=== PATIENT | female | born 1980 | race Hispanic/Latino ===

== ENCOUNTER 2018-08-29 22:37 | Emergency (ER) | payer OTHER ==
[2018-08-29 23:50] LABS: #Monocytes 0.6 thou/uL (0.11-0.59); #Neutrophils 4.3 thou/uL (1.40-6.50); %Basophils 0.7 % (0.0-1.0); %Eosinophils 0.6 % (0.0-10.0); %Lymphocytes 28.3 % (21.0-51.0); %Neutrophils 62.4 % (42.0-75.0); Hemoglobin 12.6 g/dL (12.0-16.0); Mean Corpuscular HGB CONC 34.2 g/dL (32.0-36.0); Mean Corpuscular Hemoglobin 28.1 pg (27.0-31.0); Mean Corpuscular Volume 82.1 fL (78.0-98.0); Mean Platelet Volume 7.3 fL (7.4-10.4); Platelet Count 262 thou/uL (130-400); RBC Distribution Width 17.3 % (11.5-14.5); Red Blood Cell (RBC) Count 4.47 mill/uL (4.20-5.40); White Blood Cell (WBC) Count 6.9 thou/uL (4.8-10.8)
[2018-08-30 00:01] LABS: ALT (SGPT) 24 U/L (8-55); AST (SGOT) 14 U/L (5-34); Albumin 3.3 g/dL (3.5-5.0); Alkaline Phosphatase 52 U/L (40-150); Anion Gap 12 mmol/L (10-20); BUN (Urea Nitrogen) 12 mg/dL (7.0-18.7); Bilirubin, Total 0.2 mg/dL (0.2-1.2); Calc. Creatinine Clearance 0 mL/min (70-130); Calcium 9.5 mg/dL (7.8-10.44); Carbon Dioxide 21 mmol/L (22-29); Chloride 108 mmol/L (98-107); Estimated GFR-MDRD Greater than 90; Globulin 3.2 g/dL (2.4-3.5); Glucose 94 mg/dL (70-105); Protein, Total 6.5 g/dL (6.0-8.3); Sodium 137 mmol/L (136-145)
== END 2018-08-30 00:13 | disposition home or self-care (01) ==
LOC: SCSER 22:37
DX: O99.89 Other specified diseases and conditions complicating pregnancy, childbirth and the puerperium (principal); Z04.1 Encounter for examination and observation following transport accident; O16.2 Unspecified maternal hypertension, second trimester; Z3A.20 20 weeks gestation of pregnancy; Z79.899 Other long term (current) drug therapy; Z79.82 Long term (current) use of aspirin; V89.2XXA Person injured in unspecified motor-vehicle accident, traffic, initial encounter
CPT/HCPCS: 80053; 85025; 99283

== ENCOUNTER 2018-09-12 17:39 | Day surgery (SDC) | payer OTHER ==
[2018-09-12] MEDS ORDERED: Labetalol HCl 100 MG/20 ML VIAL SLOW IVP PRN ×3 (17:55→18:45)
[2018-09-12 17:56] VITALS: BMI 39.4
[2018-09-12] MEDS ORDERED: Labetalol HCl 100 MG/20 ML VIAL SLOW IVP SCH (18:00)
[2018-09-12] MEDS ORDERED: Magnesium Sulfate 20 gm/500 ml 20 GM/500 ML BAG ONE (18:02)
[2018-09-12] MEDS ORDERED: Calcium Gluc 4.6 MEQ/10 ML (100 MG/ML) SLOW IVP PRN (18:16)
--- NOTE | 2018-09-12 18:21 | PDOC.LDHP ---
Labor and Delivery H&P Chief complaint: other (Severe HTN at 22 weeks 3 days) HPI: Patient sent to L&D from [facility] visit today, per Dr Reece first took the call Location: L&D Triage B Time: 1814 First evaluated at bedside at 1800 Patient is a 37 yo last delivery by CS with a HX of CHTN on labetolol 200mg po BID, was sent for emergent HTN from [facility] today. Saw Dr Burt Siu ( [facility]) who sent her here. No NG, no VB. She states her BP this am at home was 123/ 75. Her BP on arrival was 212/90s, 199/98 Allergies: none Meds: Labetolol 200mg po BID Current gestational age (weeks): 22 (3 days) Due date: 01/13/19 Dating criteria: last menstrual period Grav: 3 Para: 2 OB History Details: Last delivery was CS 2006 Current complications: hypertension Abnormal US findings: No (states sono EFW at [facility] was "1 #3 oz") Current medications: pre- vitamins, other (Labetolol 200mg po BID) Previous surgical history: low tranverse CS Allergies/Adverse Reactions: Allergies Allergy/AdvReac Type Severity Reaction Status Date / Time No Known Allergies Allergy Verified 09/12/18 18:02 Social history: none - Physical Exam Abnormal vital signs: 205/111 after 20mg labetolol SIVP x1, now getting 40mg labetolol SIVP General: NAD Heart: RRR Lungs: CTAB Abdomen: gravid Extremeties: no edema FHT: category 1 Carson contractions every: no CTX - Assessment Severe preeclampsia on CHTN at 22 weeks 3 days. Severo Villegas [facility] physician locally (from [facility]) - Plan Plan: admit to L&D (Plan: 1. stat mag with 6 gram load 2. labetolol SIVP protocol, then po procardia prn 3. Stat PIH labs 4. UTox (do not suspect illict use) 5. Sono for record here I have discussed this with the charge nurse as well as Gissel Tyson (adjunct nursing faculty), and I have reviewed care with the patient. As she is periviable, and we do not have [facility] on site, best option would be to transfer to [facility] (where her [facility] physican is) as delivery/ termination of may be indicated. She is aware that delivery is a possibility. I reviewed with her viability limits and the reason for MFM proposed transfer.)
[2018-09-12 18:23] LABS: #Basophils 0.1 thou/uL (0.0-0.2); #Lymphocytes 2.2 thou/uL (1.20-3.40); #Monocytes 0.6 thou/uL (0.11-0.59); #Neutrophils 4.5 thou/uL (1.40-6.50); %Basophils 0.7 % (0.0-1.0); %Eosinophils 0.6 % (0.0-10.0); %Monocytes 8.4 % (0.0-10.0); %Neutrophils 60.3 % (42.0-75.0); Hemoglobin 13.2 g/dL (12.0-16.0); Mean Corpuscular HGB CONC 33.3 g/dL (32.0-36.0); Mean Corpuscular Hemoglobin 28.6 pg (27.0-31.0); Mean Corpuscular Volume 86.1 fL (78.0-98.0); Mean Platelet Volume 8.4 fL (7.4-10.4); Platelet Count 275 thou/uL (130-400); RBC Distribution Width 16.8 % (11.5-14.5); Red Blood Cell (RBC) Count 4.59 mill/uL (4.20-5.40); White Blood Cell (WBC) Count 7.5 thou/uL (4.8-10.8)
[2018-09-12] MEDS ORDERED: Magnesium Sulfate 20 GM/WATER 500 ML BAG IVPB SCH (18:30)
[2018-09-12] MEDS ORDERED: Magnesium Sulfate 20 gm/500 ml 20 GM/500 ML BAG IVPB SCH (18:30)
--- NOTE | 2018-09-12 18:43 | PDOC.EVN ---
Event Note - Event Note Event Note: BP after 40mg Labetolol SIVP (total given= 60)= 159/98 Transfer center called. Arranging Flight crew. I choose flight transport over ground due to degree of initial HTN. enroute here. we will transfer to [facility] for continuation of care
[2018-09-12 18:47] VITALS: BP 171/92
[2018-09-12 18:52] LABS: ALT (SGPT) 23 U/L (8-55); AST (SGOT) 18 U/L (5-34); Albumin 3.6 g/dL (3.5-5.0); Alkaline Phosphatase 74 U/L (40-150); Anion Gap 14 mmol/L (10-20); BUN (Urea Nitrogen) 14 mg/dL (7.0-18.7); Bilirubin, Total 0.2 mg/dL (0.2-1.2); Calc. Creatinine Clearance 157 mL/min (70-130); Calcium 9.6 mg/dL (7.8-10.44); Carbon Dioxide 20 mmol/L (22-29); Chloride 105 mmol/L (98-107); Estimated GFR-MDRD 90; Globulin 3.4 g/dL (2.4-3.5); Glucose 76 mg/dL (70-105); Potassium 3.8 mmol/L (3.5-5.1); Sodium 135 mmol/L (136-145)
[2018-09-12 18:54] LABS: Amphetamine Not Detected (NotDetected); Barbiturates Screen Not Detected (NotDetected); Benzodiazepine Screen Not Detected (NotDetected); Cocaine Metabolite Screen Not Detected (NotDetected); Medtox Control Line Valid? VALID (VALID); Medtox Reader # READER 4; Methadone Not Detected (NotDetected); Methamphetamine Not Detected (NotDetected); Opiate Screen Not Detected (NotDetected); Oxycodone Screen Not Detected (NotDetected); Phencyclidine (PCP) Not Detected (NotDetected); THC/Cannabinoid Screen Not Detected (NotDetected); Tricyclic Screen Not Detected (NotDetected)
--- NOTE | 2018-09-12 18:55 | PDOC.EVN ---
Event Note - Event Note Event Note: Just gave report to transfer center and the MD...they will accept. [facility] awaiting dispatch
--- NOTE | 2018-09-12 19:02 | PDOC.EVN ---
Event Note - Event Note Event Note: MEDS: Mag in use Patient now s/p labetolol 80mg SIVP due to BP spike again...totals: 20mg, 40mg, 80mg per ACOG protocol. Last BP 159/90
--- NOTE | 2018-09-12 19:09 | PDOC.EVN ---
Event Note - Event Note Event Note: TRANSFER UPDATE: Per transfer center, air transport has declined due to bad weather projected in the area. We will use our ([facility]) ground for transport. This is per Transfer center update just now Reviewed with our nursing staff
--- NOTE | 2018-09-12 19:14 | ULT ---
OB ULTRASOUND: 09/12/18 INDICATION: Pre-eclampsia. Limited exam performed. Single viable intrauterine . Gestational age by ultrasound 22 weeks, 6 days. BPD 22 week, 6 day HC 22 week, 4 day AC 23 week, 0 day FL 23 week, 0 day EFW: 22 week, 1 day, 549 grams, 70th percentile. heart rate: 147 Placenta: Maternal right. Presentation: Vertex. Amniotic fluid: Adequate. JED is slightly elevated measured at 22.6 cm. IMPRESSION: 22 week, 6 day gestation by ultrasound measurement. Amniotic fluid volume appears upper normal with A FI recorded at 22.6 cm. POS: [facility]
== END 2018-09-12 19:55 | disposition short-term general hospital (02) ==
LOC: L&D/OP 17:39
PROVIDERS: ATTEND Obstetrics & Gynecology
DX: O11.2 Pre-existing hypertension with pre-eclampsia, second trimester (principal); O10.912 Unspecified pre-existing hypertension complicating pregnancy, second trimester; Z3A.22 22 weeks gestation of pregnancy; Z79.82 Long term (current) use of aspirin; Z79.899 Other long term (current) drug therapy
CPT/HCPCS: 36415; 51702; 76815; 80053; 80306; 81003; 84443; 85025; 86850; 86900; 86901; 99284; J3475

== ENCOUNTER 2018-10-16 08:57 | Inpatient (IN) | payer OTHER ==
[2018-10-16 09:24] VITALS: BMI 40.6
[2018-10-16] MEDS ORDERED: NIFEdipine 10 MG CAP PO PRN (09:40)
[2018-10-16] MEDS ORDERED: NIFEdipine 10 MG CAP ONE (10:11)
[2018-10-16 11:38] LABS: Creatinine, Urine 159.6 mg/dL (47-110)
[2018-10-16 12:22] LABS: ALT (SGPT) 57 U/L (8-55); AST (SGOT) 33 U/L (5-34); Albumin 2.5 g/dL (3.5-5.0); Alkaline Phosphatase 317 U/L (40-150); Anion Gap 10 mmol/L (10-20); BUN (Urea Nitrogen) 16 mg/dL (7.0-18.7); Bilirubin, Total 0.4 mg/dL (0.2-1.2); Calc. Creatinine Clearance 151 mL/min (70-130); Calcium 8.7 mg/dL (7.8-10.44); Carbon Dioxide 22 mmol/L (22-29); Chloride 106 mmol/L (98-107); Estimated GFR-MDRD 83; Globulin 2.8 g/dL (2.4-3.5); Glucose 87 mg/dL (70-105); Potassium 4.3 mmol/L (3.5-5.1); Protein, Total 5.3 g/dL (6.0-8.3); Sodium 134 mmol/L (136-145); Uric Acid 4.8 mg/dL (2.6-6.0)
[2018-10-16 12:36] LABS: #Lymphocytes 1.9 thou/uL (1.20-3.40); #Monocytes 0.6 thou/uL (0.11-0.59); #Neutrophils 6.4 thou/uL (1.40-6.50); %Basophils 0.1 % (0.0-1.0); %Eosinophils 0.5 % (0.0-10.0); %Lymphocytes 21.3 % (21.0-51.0); %Monocytes 6.9 % (0.0-10.0); %Neutrophils 71.1 % (42.0-75.0); Hemoglobin 12.9 g/dL (12.0-16.0); Mean Corpuscular HGB CONC 34.2 g/dL (32.0-36.0); Mean Corpuscular Hemoglobin 30.4 pg (27.0-31.0); Mean Corpuscular Volume 88.9 fL (78.0-98.0); Mean Platelet Volume 9.2 fL (7.4-10.4); Platelet Count 107 thou/uL (130-400); Platelet Morphology Comment Appears Decreased; RBC Distribution Width 14.8 % (11.5-14.5); RBC Morphology Normal; Red Blood Cell (RBC) Count 4.25 mill/uL (4.20-5.40); White Blood Cell (WBC) Count 8.9 thou/uL (4.8-10.8)
[2018-10-16] MEDS ORDERED: Betamet Acet/Betamet Na Ph 30 MG/5 ML VIAL ONE (13:44)
[2018-10-16] MEDS ORDERED: Ondansetron PF 4 MG/2 ML Vial IVP PRN ×3 (14:19→19:25)
[2018-10-16] MEDS ORDERED: Promethazine HCl 25 MG/ML VIAL IM PRN ×2 (14:19→18:27)
[2018-10-16] MEDS ORDERED: Calcium Gluc 4.6 MEQ/10 ML (100 MG/ML) SLOW IVP PRN (14:19)
[2018-10-16] MEDS ORDERED: Bicitra 30 ML UDCUP PO SCH (14:30)
[2018-10-16] MEDS ORDERED: Magnesium Sulfate 20 gm/500 ml 20 GM/500 ML BAG IVPB SCH ×2 (14:30→19:30)
[2018-10-16] MEDS ORDERED: Magnesium Sulfate 20 GM/WATER 500 ML BAG IVPB SCH (14:30)
[2018-10-16] MEDS ORDERED: CEFAZOLIN 2 GM in Premix Bag 1 BAG IVPB SCH (14:30)
--- NOTE | 2018-10-16 14:42 | ULT ---
BIOPHYSICAL PROFILE: 10/16/18 INDICATION: Elevated blood pressure. FINDINGS/IMPRESSION: tone: 2 breathin movement: 2 Amniotic fluid: 2 Total Score: 8/8. Presentation: Transverse with head to maternal left. Placenta: Fundal. JED: 12.6 cm. heart rate: 137 beats per minute. POS: OFF
--- NOTE | 2018-10-16 15:00 | PDOC.APC ---
Antepartum Consult NOVA ODELL is a 37 year old female at [27 2/7] gestational weeks. I was asked to see this patient by Dr. Au for expected delivery. This is a mother with a history of chronic HTN with now superimposed HELLP syndrome. She presented today with elevated pressures and labs consistent with HELLP syndrome. Decision made to delivery today, prior to 48 hour steroid benefit. She has a history of prior delivery at 32 weeks. I outlined that the timing and mode of delivery is a decision that will be made by the OB service. Once the patient is taken for delivery, the resuscitation team will be present. The initial focus will be on respiratory stabilization with CPAP or intubation with surfactant administration. I discussed that the patient will need to be admitted to the NICU in an isolette due to temperature instability associated with prematurity. We will then obtain umbilical IV access as babies are at risk for hypoglycemia and cannot tolerated large volumes of feeding initially. We discussed that babies born are at higher risk for feeding intolerance (NEC), infection and jaundice. I discussed that breastmilk is the best nutrition for babies and she is strongly encouraged to pump after delivery. Mother does plan to breastfeed and we discussed the availability of donor milk and mom consented to use. We discussed slowly increasing enteral feedings and the use of TPN while increasing feeding volumes. We discussed that the baby will need ROP or head US screening given the risk of ROP and IVH. We discussed the risk for low blood pressure and PDA. I explained that the duration of hospital stay will be determined on the clinical course of the baby. I highlighted the differences in the expected hospital for a baby born at 27 weeks versus 32 weeks. She had the opportunity to ask questions. I spent 30 minutes with the patient, greater than 50% of that time counseling and/or coordinating care discussing outcomes for an extremely . Labs: 06/14/18 HIV negative, Hep B negative, syphilis testing negative
[2018-10-16] MEDS: hydrALAZINE 20 MG/ML VIAL SLOW IVP PRN ×2 (15:28→16:02)
[2018-10-16 15:32] LABS: Hemoglobin 13.6 g/dL (12.0-16.0); Mean Corpuscular HGB CONC 33.9 g/dL (32.0-36.0); Mean Corpuscular Hemoglobin 30.6 pg (27.0-31.0); Mean Corpuscular Volume 90.3 fL (78.0-98.0); Mean Platelet Volume 9.6 fL (7.4-10.4); Platelet Count 114 thou/uL (130-400); Red Blood Cell (RBC) Count 4.43 mill/uL (4.20-5.40); White Blood Cell (WBC) Count 10.7 thou/uL (4.8-10.8)
[2018-10-16] MEDS ORDERED: hydrALAZINE 20 MG/ML VIAL ONE (16:00)
[2018-10-16 16:06] LABS: HBSAg Index 0.27 S/CO (0-0.99); Hep B Surf Ag Non-Reactive S/CO (NonReactive); Syphilis Antibody Nonreactive (Nonreactive); Syphilis Antibody Index 0.01 S/CO (<1.00 Non-Reactive)
[2018-10-16] MEDS ORDERED: hydrALAZINE 20 MG/ML VIAL SLOW IVP SCH (16:15)
[2018-10-16] MEDS ORDERED: Ketorolac Tromethamine 30 MG/ML VIAL ONE ×2 (16:19→17:50)
[2018-10-16] MEDS ORDERED: Ondansetron PF 4 MG/2 ML Vial ONE ×2 (16:19→17:12)
[2018-10-16] MEDS ORDERED: PHENYLEPHRINE-NS 100 MCG/ML 10 ML SYRINGE ONE (16:19)
--- NOTE | 2018-10-16 16:53 | PDOC.LDHP ---
Labor and Delivery H&P Chief complaint: other (elevated BP in the office, labs consistent with HELLP syndrome) HPI: Pt is a 37yo with hx of CHTN on labetalol 400 BID and Procardia 30mg a day, AMA and hx of CS prior @ 32 weeks for severe preeclampsia who is now @ 27.2 weeks sent from clinic for BP 170/100, increased from baseline of 130/80- 90s. Pt reports normal BP at work today. Was noted to have increase from baseline @ 22 weeks and was transferred to [facility] at that time and released after BP normalized on new medications. On intake to L and D BP were severe range but responded to oral nifedipine. PIH labs were ordered and were significant for platelets of 107, elevated alk phos and ALT, urine prot:creat 11. FHT was noted to have minimal variability and intermittent decelerations as well. Steriod were given for FLM and the indication for delivery was discussed with the patient. Current gestational age (weeks): 27 Due date: 01/13/19 Dating criteria: last menstrual period, first trimester ultrasound Grav: 3 Para: 2 OB History Details: 1995 2008 1CS, severe PIH Current complications: hypertension, preeclampsia with severe features Abnormal US findings: No Past Medical History: CHTN AMA Current medications: pre- vitamins, other (ASA, labetalol 400mg BID, procardia 30 q day) Allergies/Adverse Reactions: Allergies Allergy/AdvReac Type Severity Reaction Status Date / Time No Known Allergies Allergy Verified 10/16/18 09:18 Social history: none - Physical Exam Abnormal vital signs: NO severe range BP General: NAD Heart: RRR Lungs: CTAB Abdomen: gravid Extremeties: trace edema FHT: category 2 - OB Labs Blood type: A RH: positive Antibody Screen: negative HIV: negative RPR: negative HEPSAg: negative 1 hour GCT: negative - Assessment L&D Assessment: medically indicated induction A/P: 28yo @ 27.2 weeks with superimposed preeclampsia with HELLP syndrome, NRFHT, RCS indicated for delivery prior to steriod benefit. S/P one dose of Celestone. Magnesium started for seizure prophylaxis. Will proceed to OR for RCS, post magnesium and serial labs planned. NICU consult completed.
[2018-10-16] MEDS ORDERED: Fentanyl 100 MCG/2 ML VIAL ONE (16:55)
[2018-10-16] MEDS ORDERED: MORPHINE 5 MG/10 ML PF VIAL ONE (16:55)
[2018-10-16] MEDS ORDERED: Oxytocin 10 UNITS/ML VIAL ONE ×2 (16:56→17:48)
[2018-10-16] MEDS ORDERED: ePHEDrine/0.9% NaCl/PF SYRINGE 50 mg/10 ml ONE (16:56)
[2018-10-16] MEDS ORDERED: Phenylephrine HCL 10 MG/ML VIAL ONE (16:56)
--- NOTE | 2018-10-16 18:09 | PDOC.OPDEL ---
OB Operative/Delivery Note Delivery Dr/Surgeon: Roe Assist: Uriah Pre-Delivery Diagnosis: medically indicated induction (superimposed severe PIH w HELLP) Procedure/Post Delivery Dx: repeat low transverse CS Weeks gestation: 27 Anesthesia: spinal - Findings A Sex: male Weight: 1 lb 12 oz - Additional Findings/Plan Placenta delivered: manual removal findings: low transverse hysterotomy without extension, normal tubes, normal ovaries, other (fundal serosal fibroid) Estimated blood loss: 500ml Compilations/Other Findings: breech delivery through low transverse uterine incision Post delivery plan: recovery in LICU
--- NOTE | 2018-10-16 18:21 | OP ---
DATE OF PROCEDURE: 10/16/2018 PRINTING ROLLER HANDLER NOTE: PREOPERATIVE DIAGNOSIS: In brief, this is a patient of Dr. Au, who is here with the patient, who has established a diagnosis of 27 weeks, severe preeclampsia/HELLP syndrome. She has received one shot of steroids. Due to persistent severe range hypertension, the decision was made by Dr. Au to proceed with repeat despite the EGA due to abnormal laboratory findings, and inability to normalize blood pressure despite being on labetalol and oral Procardia. I was asked to assist with a repeat . I proceeded to assist with a repeat low transverse under Pfannenstiel. The baby was in a breech presentation, delivered by Dr. Au in an atraumatic fashion. No head entrapment was noted. Delayed cord clamp of approximately 45 to 60 seconds was done. The baby did have spontaneous movement and attempt to cry and was handed quickly to the NICU team after cord clamped and cut. Umbilical gases were sent as was the placenta for pathology. Baby was intubated and sent to the NICU per the NICU team. Please see the full dictation by Dr. Au. Job ID: [id number]
[2018-10-16] MEDS ORDERED: Promethazine HCl 25 MG SUPP PR PRN (18:27)
[2018-10-16] MEDS ORDERED: Naloxone HCl 0.4 mg/ml Vial IV PRN (18:27)
[2018-10-16] MEDS ORDERED: Ketorolac Tromethamine 30 MG/ML VIAL IVP PRN (18:27)
[2018-10-16] MEDS ORDERED: diphenhydrAMINE 50 MG/ML VIAL IVP PRN (18:27)
[2018-10-16] MEDS ORDERED: Naloxone HCl 0.4 mg/ml Vial IVP PRN ×2 (18:27)
[2018-10-16] MEDS ORDERED: Communication Order-Pharmacy FS SCH (18:30)
[2018-10-16] MEDS ORDERED: Calcium Gluconate 4.6 MEQ in Sodium Chloride 0.9% 100 ML IVPB PRN (19:25)
[2018-10-16] MEDS ORDERED: Lanolin Ointment 7 GM TUBE TOP PRN (19:25)
[2018-10-16] MEDS ORDERED: HYDROcodone/Acetaminophen 5/325 mg Tablet PO PRN (19:25)
[2018-10-16] MEDS ORDERED: Simethicone Chewable 80 MG TAB PO PRN (19:25)
[2018-10-16] MEDS ORDERED: Bisacodyl 10 MG SUPP PR PRN (19:25)
[2018-10-16] MEDS ORDERED: NS / Oxytocin 40 units/1000ml 1,000 ML IV SCH (19:25)
[2018-10-16] MEDS ORDERED: diphenhydrAMINE 25 MG CAP PO PRN (19:25)
[2018-10-16] MEDS ORDERED: hydrALAZINE 20 MG/ML VIAL SLOW IVP PRN ×2 (19:25)
--- NOTE | 2018-10-16 20:50 | PDOC.EVN ---
Event Note - Event Note Event Note: BP 160/90s...we will give labetalol 20mg SIVP X 1 now Follow BPs
[2018-10-16] MEDS ORDERED: Labetalol HCl 100 MG/20 ML VIAL SLOW IVP SCH (21:00)
[2018-10-16 22:30] LABS: Hemoglobin 12.8 g/dL (12.0-16.0); Mean Corpuscular HGB CONC 32.7 g/dL (32.0-36.0); Mean Corpuscular Hemoglobin 29.3 pg (27.0-31.0); Mean Corpuscular Volume 89.8 fL (78.0-98.0); Platelet Count 129 thou/uL (130-400); Red Blood Cell (RBC) Count 4.36 mill/uL (4.20-5.40); White Blood Cell (WBC) Count 14.4 thou/uL (4.8-10.8)
[2018-10-16 22:50] LABS: ALT (SGPT) 53 U/L (8-55); AST (SGOT) 32 U/L (5-34); Albumin 2.4 g/dL (3.5-5.0); Alkaline Phosphatase 294 U/L (40-150); Anion Gap 14 mmol/L (10-20); BUN (Urea Nitrogen) 16 mg/dL (7.0-18.7); Bilirubin, Total 0.5 mg/dL (0.2-1.2); Calc. Creatinine Clearance 135 mL/min (70-130); Calcium 8.9 mg/dL (7.8-10.44); Carbon Dioxide 18 mmol/L (22-29); Chloride 104 mmol/L (98-107); Estimated GFR-MDRD 73; Globulin 3.3 g/dL (2.4-3.5); Glucose 151 mg/dL (70-105); Potassium 4.7 mmol/L (3.5-5.1); Protein, Total 5.7 g/dL (6.0-8.3); Sodium 131 mmol/L (136-145)
--- NOTE | 2018-10-17 00:59 | PDOC.EVN ---
Event Note - Event Note Event Note: D0 s/p labetolol 20mg SIVP...only prn med given s. Sleeping well O. get low O2 when sleeping...92%, but returns to 98 when awake UOP 100ml or so/HR BPs 140-150s/90s Oconnor in use Baby in NICU getting transfused A/P: HELLP at 27 weeks s/p CS (repeat LTCS)...baby in NICU 1. repeat labs pending 2. Mag level 3.supplimental O2 4. Follow UOP 5. Treat any severe BPs urgently 6. Mag Sulfate for 24 hrs
--- NOTE | 2018-10-17 03:17 | OP ---
DATE OF PROCEDURE: 10/16/2018 PREOPERATIVE DIAGNOSES: 1. A 37-year-old, G3, P1-1-0-2 at 27 weeks and 2 days with chronic hypertension. 2. Superimposed preeclampsia with HELLP syndrome. 3. Nonreassuring status. 4. Previous section. POSTOPERATIVE DIAGNOSES: 1. A 37-year-old, G3, P1-1-0-2 at 27 weeks and 2 days with chronic hypertension. 2. Superimposed preeclampsia with HELLP syndrome. 3. Nonreassuring status. 4. Previous section. 5. Status post repeat section. PROCEDURES PERFORMED: 1. Repeat low-transverse section. 2. Placement of a Prevena prophylactic wound VAC. AUTOMATIC GRINDING MACHINE OPERATOR: Everardo Kruse MD COMPLICATIONS: None. ESTIMATED BLOOD LOSS: 500 mL. QUANTITATIVE BLOOD LOSS: Pending at the time of dictation. ANESTHESIA: Spinal per Dr. Moncada. OPERATIVE FINDINGS: 1. Low-transverse hysterotomy without extension. 2. Normal-appearing uterus, tubes, and ovaries bilaterally. 3. Infant delivered from breech presentation without difficulty. 4. Surgical site hemostatic. INDICATIONS FOR PROCEDURE: Ms. Terri Mari was sent to Labor and Delivery from clinic for evaluation of increase in blood pressures above her baseline blood pressures with known chronic hypertension, controlled with multiple medications prior to today's visit. The patient was noted to have persistent severe range blood pressures and required oral nifedipine as well as hydralazine after arriving on the unit. She had a laboratory evaluation with a urine protein-creatinine ratio of 11, elevated ALT and decreased platelets to 107. The patient was diagnosed with HELLP syndrome superimposed on chronic hypertension, was given a dose of Celestone and was counseled for repeat section. While waiting for her section, the non-reassuring heart tracing was observed and the patient was moved to the operating room for planned section. DESCRIPTION OF PROCEDURE: The patient taken back to the OR with IV fluids running and a Oconnor catheter that was previously placed. She had also been on magnesium for seizure prophylaxis prior to the start of the section. The spinal anesthesia was placed by the anesthesia team and the patient was placed in dorsal supine position with a left lateral tilt. The abdomen was prepped and draped in normal fashion for section. The abdomen was tested and anesthesia was found to be adequate. Surgeons were scrubbed in and gowned and gloved and the procedure began with a Pfannenstiel skin incision made with a scalpel. The skin incision was carried down through the subcutaneous tissue until the fascia was reached. The fascia was incised in the midline and extended superolaterally using curved Ng scissors. Vivian clamps were placed at the superior border of the fascia, which was dissected off the rectus abdominis muscles, were then placed at the inferior border of the fascia, which was dissected down toward the level of the pubic symphysis, the rectus muscles from the rectus fascia. The peritoneum was bluntly entered and stretched laterally. An Richard O retractor was placed into the abdominal peritoneal cavity and the uterus was examined. A low-transverse hysterotomy was felt to be appropriate for the patient and was made with a scalpel. The hysterotomy was extended and amniotomy was performed, and the was delivered without difficulty from a complete breech presentation. After the infant was delivered and with the NICU team present, approximately 30 seconds of delayed cord clamping was achieved. The infant was then handed off to special care nurses in attendance. The cord blood was collected. Cord gas was collected and the placenta was delivered. The uterus was then exteriorized massaged to firm and cleared of clot and debris. The hysterotomy was inspected with no extension. The hysterotomy was reapproximated with Monocryl suture in a running locked fashion. A double-layer closure was completed. After the 2nd closure was done, a small area of bleeding was noted at the inferior edge in the midline. A [id number] chromic suture was placed and hemostasis was achieved. The hysterotomy was inspected again with no areas of bleeding noted. The hysterotomy and paracolic gutters were irrigated and suctioned dry. The count was correct in the end, and the instruments and Richard retractor were removed from the abdomen. The rectus muscle was inspected and any small areas of bleeding were controlled with Bovie cauterization. The fascial edge was inspected and reapproximated with PDS suture from corner to corner and tied separately in the midline. The subcutaneous tissue was irrigated and dried. Any small areas of bleeding were controlled with the Bovie. The subcutaneous tissue was reapproximated with plain gut suture. The skin was reapproximated with lauren and a Prevena sterile negative pressure prophylactic wound VAC was applied to the skin and the incision. The patient tolerated the procedure well. She was transferred back to labor and delivery room for plans for 24-hour magnesium recovery and with serial labs to be ordered. The patient will be comanaged overnight with the OB hospitalist service and Dr. Kruse is aware. The counts at the end of the case were correct. Job ID: [id number]
[2018-10-17] MEDS: Labetalol 100 MG TAB PO SCH ×3 (05:57→22:30)
[2018-10-17] MEDS: Docusate Calcium (SURFAK) 240 MG CAP PO SCH ×2 (05:57→11:18)
[2018-10-17] MEDS: Ferrous Sulfate 325 MG TAB PO SCH ×2 (05:57→11:18)
--- NOTE | 2018-10-17 06:59 | PDOC.EVN ---
Event Note - Event Note Event Note: 10/17/18 Time: 0655 S. No NG, aware of all events from yesterday. O. Last BP this AM when I was at [id number]=028q/90s Mag in use MAG LEVEL 7.1 last pm Oconnor in use A/P: s/p 27 week repeat CS for early HELLP, baby in NICU- continue mag until 1800 Advnace to full liquid Dual po BP meds as written: labetalol and procardia
[2018-10-17 08:04] LABS: Hemoglobin 11.7 g/dL (12.0-16.0); Mean Corpuscular HGB CONC 32.5 g/dL (32.0-36.0); Mean Corpuscular Hemoglobin 29.5 pg (27.0-31.0); Mean Corpuscular Volume 90.9 fL (78.0-98.0); Mean Platelet Volume 8.7 fL (7.4-10.4); Platelet Count 158 thou/uL (130-400); RBC Distribution Width 15.2 % (11.5-14.5); Red Blood Cell (RBC) Count 3.96 mill/uL (4.20-5.40); White Blood Cell (WBC) Count 12.5 thou/uL (4.8-10.8)
[2018-10-17 08:22] LABS: ALT (SGPT) 48 U/L (8-55); AST (SGOT) 26 U/L (5-34); Albumin 2.3 g/dL (3.5-5.0); Alkaline Phosphatase 262 U/L (40-150); Anion Gap 14 mmol/L (10-20); BUN (Urea Nitrogen) 17 mg/dL (7.0-18.7); Bilirubin, Total 0.4 mg/dL (0.2-1.2); Calc. Creatinine Clearance 131 mL/min (70-130); Calcium 8.4 mg/dL (7.8-10.44); Carbon Dioxide 18 mmol/L (22-29); Chloride 103 mmol/L (98-107); Estimated GFR-MDRD 71; Globulin 3.2 g/dL (2.4-3.5); Glucose 120 mg/dL (70-105); Potassium 4.8 mmol/L (3.5-5.1); Protein, Total 5.5 g/dL (6.0-8.3); Sodium 130 mmol/L (136-145)
--- NOTE | 2018-10-17 08:42 | PDOC.EVN ---
Event Note - Event Note Event Note: Report obtained from Dr. Kruse. 17 yo LAF with HELLP s/p C/S at 27 weeks. On Mg, level at 0800 is 7.6, plts= 158, Cr= .89. Will decrease Mg to 1 gm/hr. UO-100-125 cc/hr. Labetalol and Procardia ordered.
[2018-10-17] MEDS ORDERED: Adacel (T-DAP) 0.5 ML SYRINGE IM ONE (09:00)
[2018-10-17] MEDS: NIFEdipine XL 30 MG TAB PO SCH (09:14)
[2018-10-17] MEDS: Prenatal Vitamin 1 TAB PO SCH (11:18)
--- NOTE | 2018-10-17 21:03 | PDOC.EVN ---
Event Note - Event Note Event Note: Resting, no c/o. Bps 110's/50s. UO last wfqp=421 cc clear urine. Mg level at 1999= 6.0. Plan: DC Mg and tranfer to floor
[2018-10-17] MEDS: HYDROcodone/Acetaminophen 5/325 mg Tablet PO PRN (22:58)
--- NOTE | 2018-10-18 00:10 | PDOC.PP ---
Post Progress Note Post Day #: POD#2 Subjective: Transferred to floor, doing well. No c/o. FV=110/75 PO intake tolerated: yes Flatus: no Ambulation: no Weight Weight 97.522 kg - Physical Examination General: NAD Respiratory: non-labored breathing Abdominal: no distention Skin: CS incision dry & intact Psychiatric: normal affect Result Diagrams: 10/17/18 07:53 10/17/18 07:53 Additional Labs: Post Labs Blood Type A POSITIVE 10/16/18 15:15 Hep Bs Antigen Non-Reactive S/CO (NonReactive) 10/16/18 15:15 - Assessment/Plan Resolving PIH. Advance diet. Cont. post op care.
[2018-10-18] MEDS: Ferrous Sulfate 325 MG TAB PO SCH ×3 (00:27→21:22)
[2018-10-18] MEDS: Docusate Calcium (SURFAK) 240 MG CAP PO SCH ×3 (00:27→21:19)
[2018-10-18] MEDS: HYDROcodone/Acetaminophen 5/325 mg Tablet PO PRN ×4 (04:12→18:09)
[2018-10-18] MEDS: Labetalol 100 MG TAB PO SCH ×2 (08:39→21:19)
[2018-10-18] MEDS: NIFEdipine XL 30 MG TAB PO SCH (08:41)
[2018-10-18] MEDS: Prenatal Vitamin 1 TAB PO SCH (08:42)
[2018-10-19] MEDS: HYDROcodone/Acetaminophen 5/325 mg Tablet PO PRN ×2 (04:54→11:10)
[2018-10-19] MEDS ORDERED: Sodium Chloride 0.9% 10 ML ONE (05:00)
[2018-10-19] MEDS: Docusate Calcium (SURFAK) 240 MG CAP PO SCH (07:43)
[2018-10-19] MEDS: Labetalol 100 MG TAB PO SCH (07:43)
[2018-10-19] MEDS: NIFEdipine XL 30 MG TAB PO SCH (07:44)
[2018-10-19] MEDS: Prenatal Vitamin 1 TAB PO SCH (07:44)
[2018-10-19] MEDS: Ferrous Sulfate 325 MG TAB PO SCH (09:06)
[2018-10-19 11:16] VITALS: BP 131/84; TEMP 97.6
--- NOTE | 2018-10-19 13:47 | PDOC.EVN ---
Event Note - Event Note Event Note: SBP to 150s early this AM. BP now= 131/84. Denies NG or visual changes. Abdomen is soft and NT. Wound vac in place. Plan: DC home on Labetalol 400 BID and Procardia XL 30 qd. RTC next week for wound review and BP check with Dr. Au. Precautions reviewed.
== END 2018-10-19 14:50 | disposition home or self-care (01) | DRG 788 ==
LOC: L&D/OP 08:57 → L&D 14:12 → 3SW 10-17 22:28
PROVIDERS: ADMIT Obstetrics & Gynecology; ATTEND Obstetrics & Gynecology
PROC: 10D00Z1 Extraction of Products of Conception, Low, Open Approach (ICD-10-PCS; principal; 2018-10-16)
DX: O14.24 HELLP syndrome, complicating childbirth (principal); O76 Abnormality in fetal heart rate and rhythm complicating labor and delivery; O10.02 Pre-existing essential hypertension complicating childbirth; O34.211 Maternal care for low transverse scar from previous cesarean delivery; Z37.0 Single live birth; Z3A.27 27 weeks gestation of pregnancy
CPT/HCPCS: 36415; 51702; 76819; 80053; 82570; 82805; 83735; 84156; 84550; 85025; 85027; 86780; 86850; 86900; 86901; 87340; 88307; 90715; 99285; J0360; J0690; J0702; J1885; J2274; J2370; J2405; J2550; J2590; J3010; J3475

== ENCOUNTER 2023-01-31 08:35 | Outpatient (CLI) | payer BC | END 2023-01-31 08:36 | disposition home or self-care (01) | LOC: BICMAMMO 08:35 | PROVIDERS: ATTEND Physician Assistant | DX: Z12.31 Encounter for screening mammogram for malignant neoplasm of breast (principal); N64.89 Other specified disorders of breast | CPT/HCPCS: 77063; 77067 ==

== ENCOUNTER 2023-02-06 14:32 | Outpatient (CLI) | payer BC | END 2023-02-06 14:33 | disposition home or self-care (01) | LOC: BICMAMMO 14:32 | PROVIDERS: ATTEND Physician Assistant | DX: N64.89 Other specified disorders of breast (principal) | CPT/HCPCS: G0279 ==